=== PATIENT | female | born 1965 | race Two or more races ===

== ENCOUNTER → 2021-06-18 | Day surgery (SDC) | payer OTHER ==
[~2021-06-18] MED LIST: FENTANYL CITRATE/PF 100MCG/2 ML INJ ONE; HYDROCODONE/APAP 5MG-325MG TAB ONE; LEVOTHYROXINE50 MCG PO; LIDOCAINE 1% W/EPINEPHRINE 20 ML VIAL ONE; SODIUM CHLORIDE 0.9% 50ML 100 ML ONE
[2021-06-18 17:55] VITALS: BP 139/87
== END | disposition home or self-care (01) ==
LOC: OR 13:49
PROVIDERS: ATTEND Orthopaedic Surgery
DX: S83.232A Complex tear of medial meniscus, current injury, left knee, initial encounter (principal); S83.272A Complex tear of lateral meniscus, current injury, left knee, initial encounter; Z88.2 Allergy status to sulfonamides; Z01.810 Encounter for preprocedural cardiovascular examination; E03.9 Hypothyroidism, unspecified; M94.262 Chondromalacia, left knee; M65.9 Synovitis and tenosynovitis, unspecified
CPT/HCPCS: 29876; 29880; 93005; J0690; J3010